=== PATIENT | male | born 1950 | race African-American/Black ===

== ENCOUNTER 2016-07-27 14:55 | Emergency (ER) | payer OTHER ==
[~2016-07-27] VITALS: Ht 175.3 cm; Wt 61.2 kg
[~2016-07-27 14:55] MED LIST: ASPIRIN325 PO; AUGMENTIN 875875 M1 OR; AZOR 10-40 MG1 EACH PO; BYSTOLIC 5 MG5 M1 PO; CEFDINIR300 MG PO; DIALYVITE 3,001 EACH PO; DOESN'T KNOW NAMES; EFFIENT10 MG PO; FLONASE 0.05%50 MCG NS; FUROSEMIDE 80 M80 M1 PO; LANTUS INJECTION; LANTUS SC; LIPITOR20 MG PO; LISINOPRIL10 MG OR; NEPHROCAPS SOFT1 CAP PO; NITROGLYCERIN0.4 MG SUBLING; NORCO 5-325 TA1 EACH PO; NORCO 7.5-3251 EACH PO; PHENERGAN 25 MG25 MG PO; PHOSLO667 MG PO; QUALAQUIN324 MG; RENVELA800 MG PO; SENSIPAR 30 MG30 M1 PO; SENSIPAR60 MG PO; SODIUM BICARBO650 M3 PO; TOPROL XL50 MG PO; VIT D3 PO
[2016-07-27 15:37] LABS: ABSOLUTE NEUTROPHILS 5.8 thou/uL (1.4-8.2); BASOPHILS 1.4 % (0.0-2.0); HEMATOCRIT 33.1 % (42.0-52.0); HEMOGLOBIN 10.6 gm/dL (14.0-18.0); LYMPHOCYTES 11.8 % (24.0-44.0); MCH 22.8 pg (26.0-34.0); MCHC 31.9 % (28.0-37.0); MCV 71.4 fL (80.0-100.0); MONOCYTES 7.4 % (1.0-8.0); PLATELET COUNT 306 thou/uL (150-400); POLYS 78.4 % (36.0-66.0); RBC 4.64 mil/uL (4.50-6.00); RDW 26.1 % (10.5-14.5); WBC 7.4 thou/uL (4.0-11.0)
[2016-07-27 15:38] LABS: MANUAL DIFF NO
[2016-07-27 15:48] LABS: CALCIUM 9.4 mg/dL (8.5-10.1); CREATININE 6.4 mg/dL (0.6-1.3); POTASSIUM 3.9 mmol/L (3.5-5.1)
[2016-07-27 16:16] LABS: HYPOCHROMASIA 2+
[2016-07-27] MEDS ORDERED: LEVAQUIN 750 M750 MG PO (16:16)
[2016-07-27 16:17] LABS: ANISOCYTOSIS 3+; LARGE PLATELETS MANY; MICROCYTES 1+; POIKILOCYTOSIS 2+
[2016-07-27 16:18] LABS: MACROCYTES 1+
== END 2016-07-27 16:27 | disposition home or self-care (01) ==
LOC: ER 14:55
PROVIDERS: Emergency Medicine
DX: J06.9 Acute upper respiratory infection, unspecified (principal); J45.909 Unspecified asthma, uncomplicated; K21.9 Gastro-esophageal reflux disease without esophagitis; I12.0 Hypertensive chronic kidney disease with stage 5 chronic kidney disease or end stage renal disease; N18.6 End stage renal disease; E11.22 Type 2 diabetes mellitus with diabetic chronic kidney disease; Z99.2 Dependence on renal dialysis

== ENCOUNTER → 2017-01-25 | Outpatient (CLI) | payer OTHER ==
[~2017-01-25] MED LIST changes: +LEVAQUIN 750 M750 MG PO
== END ==
LOC: ULTRA 07:48
DX: R31.0 Gross hematuria (principal)

== ENCOUNTER 2017-07-07 17:31 | Emergency (ER) | payer OTHER ==
[~2017-07-07] VITALS: Ht 175.3 cm; Wt 63.5 kg
--- NOTE | ~2017-07-07 | EKG ---
[address] [place] [address] ELECTROCARDIOGRAM REPORT Name: MARY IRAHETAIN Room #: RADHA Lim#: [id number] Admission: 07/07/17 Attend Phys: Discharge: 07/07/17 Date of : 48 Report #: [id number] THIS REPORT FOR: //name// [facility] ED Test Date: 2017-07-07 Test Time: 17:39:45 Pat Name: BOOGIE IRAHETA Department: Room: Gender: M Print Production Coordinator: Nola MARSHALL : 1950 Requested By: Seema Vazquez Order Number: [id number] MD: Zan Solis Measurements Intervals [place] Rate: 89 P: 73 AK: 175 QRS: 51 QRSD: 87 T: 51 QT: 388 QTc: 473 Interpretive Statements Sinus rhythm Ventricular premature complex Compared to ECG 05/08/2014 10:47:24 Ventricular premature complex(es) now present Sinus bradycardia no longer present Electronically Signed On 07-09-2017 7:54:16 [employer] by Zan Solis [email or web address] <ELECTRONICALLY SIGNED> By: Zan Solis MD, [facility] 07/09/17 0754 D: [id number] Zan Solis MD, FACC /EPI
[2017-07-07] MEDS ORDERED: PLAVIX 75 MG TA75 M1 PO (17:40)
[2017-07-07 18:22] LABS: ABSOLUTE NEUTROPHILS 2.2 thou/uL (1.4-8.2); BASOPHILS 1.1 % (0.0-2.0); EOSINOPHILS 2.9 % (0.0-3.0); HEMOGLOBIN 10.9 gm/dL (14.0-18.0); LYMPHOCYTES 29.6 % (24.0-44.0); MCH 26.1 pg (26.0-34.0); MCHC 32.1 g/dL (28.0-37.0); MCV 81.4 fL (80.0-100.0); MONOCYTES 9.2 % (1.0-8.0); PLATELET COUNT 182 thou/uL (150-400); POLYS 57.2 % (36.0-66.0); RBC 4.18 mil/uL (4.50-6.00); RDW 23.1 % (10.5-14.5); WBC 3.9 thou/uL (4.0-11.0)
[2017-07-07 18:24] LABS: MANUAL DIFF NO
[2017-07-07 18:31] LABS: ANION GAP 10 mmol/L (7-16); BUN 33 mg/dL (7-18); CALCIUM 9.4 mg/dL (8.5-10.1); CHLORIDE 98 mmol/L (98-107); CO2 33 mmol/L (21-32); CREATININE 7.9 mg/dL (0.7-1.3); GLUCOSE 256 mg/dL (74-106); POTASSIUM 4.2 mmol/L (3.5-5.1); SODIUM 141 mmol/L (136-145)
[2017-07-07 18:33] LABS: MAGNESIUM 2.3 mg/dL (1.8-2.4); TROPONIN-I < 0.04 ng/mL (<0.06)
== END 2017-07-07 19:47 | disposition home or self-care (01) ==
LOC: ER 17:31
PROVIDERS: Emergency Medicine
DX: I48.0 Paroxysmal atrial fibrillation (principal); J45.909 Unspecified asthma, uncomplicated; K21.9 Gastro-esophageal reflux disease without esophagitis; E11.22 Type 2 diabetes mellitus with diabetic chronic kidney disease; I13.0 Hypertensive heart and chronic kidney disease with heart failure and stage 1 through stage 4 chronic kidney disease, or unspecified chronic kidney disease; N18.9 Chronic kidney disease, unspecified; Z79.4 Long term (current) use of insulin